=== PATIENT | female | born 1995 | race Caucasian/White ===

== ENCOUNTER 2018-10-14 19:22 | Emergency (ER) | payer OTHER ==
[2018-10-14] MEDS ORDERED: ONDANSETRON 4 MG TAB.RAPDIS PO ONE (20:34)
--- NOTE | 2018-10-14 20:39 | ER Document Report ---
ED Medical Screen (RME) - General Chief Complaint: Shortness Of Breath Stated Complaint: SHORTNESS OF BREATH Time Seen by Provider: 10/14/18 20:20 Mode of Arrival: Ambulatory Information source: Patient TRAVEL OUTSIDE OF THE [place] IN LAST 30 DAYS: No - HPI Notes: 10/14/18 20:35 23-year-old female presents to the ED for complaints of epigastric abdominal pain with vomiting that occurred approximately 3 hours ago. Patient states she started taking oral prednisone yesterday for a rash on her face for concern for scarlet fever, patient had a protein shake all eating almonds when she took the prednisone. LMP x 2.5 weeks ago,not sexually active. Patient states last night she ate chicken and green beans, states she did vomit after eating that meal as well. She is supposed to be having gastric bypass sleeve done next week. Denies fevers, chills, chest pain,palpitations, shortness of breath, dyspnea, diarrhea, hematuria,blurred vision,or tingling in bilateral upper or lower extremities equally, muscle paralysis, weakness in bilateral upper or lower extremities equally or rash. ROS: Other than noted above, the 12 point review of systems was reviewed with the patient and were negative, all pertinent findings are included in the HPI. PHYSICAL EXAMINATION: Vital signs reviewed. GENERAL: Well-appearing, well-nourished and in no acute distress. HEAD: Atraumatic, normocephalic. NECK: Normal range of motion CV: Heart regular rate and rhythm LUNGS: No respiratory distress ABD: Right upper quadrant abdominal pain, epigastric pain Musculoskeletal: Normal range of motion NEUROLOGICAL: Normal speech PSYCH: Normal mood, normal affect. MDM: Patient seen and examined for rapid initial assessment. Vital signs reviewed. A comprehensive ED assessment and evaluation of the patient, analysis of test results and completion of the medical decision making process will be conducted by additional ED providers. *Note is created using voice recognition software and may contain spelling, syntax or grammatical errors. 10/14/18 20:39 - Related Data Allergies/Adverse Reactions: No Known Allergies Allergy (Unverified 11/25/15 21:49) Past Medical History Renal/ Medical History: Denies: Hx Peritoneal Dialysis GI Medical History: Reports: Hx Gastroesophageal Reflux Disease - Immunizations Hx Diphtheria, Pertussis, Tetanus Vaccination: Yes Physical Exam - Vital signs Vitals: Temp Pulse Resp BP Pulse Ox 98.6 F 130 H 20 118/78 95 10/14/18 19:41 10/14/18 19:41 10/14/18 19:41 10/14/18 19:41 10/14/18 19:41 Course - Vital Signs Vital signs: Temp Pulse Resp BP Pulse Ox 98.6 F 130 H 20 118/78 95 10/14/18 19:41 10/14/18 19:41 10/14/18 19:41 10/14/18 19:41 10/14/18 19:41
--- NOTE | 2018-10-14 21:34 | RADIOLOGY REPORT (SQ) ---
EXAM DESCRIPTION: [facility]: US ABDOMEN LIMITED CLINICAL HISTORY: 23 years Female; RUQ/epigastric pain with vomiting TECHNIQUE: Right upper quadrant ultrasound was performed. COMPARISON: None. FINDINGS: Pancreas: Visualized portions are unremarkable. Liver: 17 cm long, slightly echogenic. No ductal distention. Portal venous flow is hepatopedal, normal. Gallbladder: normal with no gallstones or sonographic evidence for acute cholecystitis. No pericholecystic fluid. No sonographic Canas's sign. Common bile duct: 4 mm. Right kidney: 12.4 cm long. No hydronephrosis. Visualized portions of aorta and IVC are unremarkable. IMPRESSION: 1. Normal right upper quadrant ultrasound.
[2018-10-14 21:35] LABS: APPEARANCE,URINE CLEAR; BILIRUBIN,URINE NEGATIVE (NEGATIVE); COLOR,URINE YELLOW; GLUCOSE, URINE NEGATIVE (NEGATIVE); KETONES,URINE 80 mg/dL (NEGATIVE); LEUKOCYTE ESTERASE,URINE NEGATIVE (NEGATIVE); NITRITE,URINE NEGATIVE (NEGATIVE); PROTEIN,URINE 30 mg/dL (NEGATIVE); URINE SPECIFIC GRAVITY 1.017; UROBILINOGEN,URINE NEGATIVE mg/dL (<2.0)
[2018-10-14 21:38] LABS: HEMATOCRIT 44.1 % (36.0-47.0); HEMOGLOBIN 14.3 g/dL (12.0-15.5); MEAN CORPUSCULAR HEMOGLOBIN 26.1 pg (27.0-33.4); MEAN CORPUSCULAR HGB CONC 32.5 g/dL (32.0-36.0); MEAN CORPUSCULAR VOLUME 81 fl (80-97); PLATELET COUNT 443 10^3/uL (150-450); RED BLOOD COUNT 5.48 10^6/uL (3.72-5.28); RED CELL DISTRIBUTION WIDTH 15.9 % (11.5-14.0); WHITE BLOOD COUNT 28.7 10^3/uL (4.0-10.5)
[2018-10-14 21:44] LABS: ALANINE AMINOTRANSFERASE 28 U/L (9-52); ALBUMIN 4.7 g/dL (3.5-5.0); ALKALINE PHOSPHATASE 86 U/L (38-126); ANION GAP 14 (5-19); ASPARTATE AMINO TRANSFERASE 27 U/L (14-36); BILIRUBIN,DIRECT 0.2 mg/dL (0.0-0.4); BILIRUBIN,TOTAL 0.3 mg/dL (0.2-1.3); BLOOD UREA NITROGEN 14 mg/dL (7-20); CALCIUM 10.3 mg/dL (8.4-10.2); CARBON DIOXIDE 23 mmol/L (22-30); CHLORIDE 105 mmol/L (98-107); GLUCOSE 114 mg/dL (75-110); POTASSIUM 4.5 mmol/L (3.6-5.0); TOTAL PROTEIN 8.1 g/dL (6.3-8.2)
[2018-10-14 22:04] LABS: ABSOLUTE LYMPHOCYTES# (MANUAL) 0.6 10^3/uL (0.5-4.7); BASOPHILS % (MANUAL) 0 % (0-2); EOSINOPHILS % (MANUAL) 0 % (0-6); LYMPHOCYTES % (MANUAL) 2 % (13-45); MONOCYTES % (MANUAL) 0 % (3-13); SEGMENTED NEUTROPHILS % (MAN) 98 % (42-78); TOTAL CELLS COUNTED 100
--- NOTE | 2018-10-14 22:05 | ER Document Report ---
ED General - General Chief Complaint: Shortness Of Breath Stated Complaint: SHORTNESS OF BREATH Time Seen by Provider: 10/14/18 20:20 Mode of Arrival: Ambulatory Notes: Patient is a pleasant 23-year-old female presents with complaint of onset of severe epigastric pain with vomiting immediately after she ate. Patient says that she has had a sore throat and has not felt well for the last several days. She saw her primary care doctor yesterday because she developed a rash. They did a rapid strep test was negative. Sore throat has since resolved. She did have a rash over her face and therefore she was told this by his contact dermatitis and she was given an IM shot of Kenalog and also placed on prednisone. Start taking prednisone today. Tonight after she ate she developed the epigastric abdominal pain and vomiting. She is scheduled to her physician in [place] tomorrow about setting up her appointment to have her gastric sleeve surgery performed. She says she is been on a high-protein low-carb diet for weight loss being that she has upcoming surgery. She denies any fevers 48 hours. She has no other complaints at this time. She says since receiving the Zofran in triage for nausea is gone her pain is gone and she now is asymptomatic and overall feels well. TRAVEL OUTSIDE OF THE [place] IN LAST 30 DAYS: No - Related Data Allergies/Adverse Reactions: No Known Allergies Allergy (Unverified 11/25/15 21:49) Past Medical History - General Information source: Patient - Social History Smoking Status: Unknown if Ever Smoked Frequency of alcohol use: None Drug Abuse: None Family History: Reviewed & Not Pertinent Patient has suicidal ideation: No Patient has homicidal ideation: No Renal/ Medical History: Denies: Hx Peritoneal Dialysis GI Medical History: Reports: Hx Gastroesophageal Reflux Disease - Immunizations Hx Diphtheria, Pertussis, Tetanus Vaccination: Yes Review of Systems - Review of Systems Notes: My Normal Review Basic REVIEW OF SYSTEMS: CONSTITUTIONAL : Denies fever, chills, or sweats. Denies recent illness. CARDIOVASCULAR: Denies chest pain. RESPIRATORY: Denies cough, cold, or chest congestion. Denies shortness of breath, difficulty breathing, or wheezing. GASTROINTESTINAL: Epigastric abdominal pain. Vomiting GENITOURINARY: Denies difficulty urinating, painful urination, burning, frequency, or blood in urine. MUSCULOSKELETAL: Denies neck or back pain or joint pain or swelling. SKIN: Denies rash or skin lesions. NEUROLOGICAL: Denies altered mental status or loss of consciousness. Denies headache. Denies weakness or paralysis or loss of use of either side. Denies problems with gait or speech. Denies sensory or motor loss. ALL OTHER SYSTEMS REVIEWED AND NEGATIVE. Physical Exam - Vital signs Vitals: Temp Pulse Resp BP Pulse Ox 98.6 F 130 H 20 118/78 95 10/14/18 19:41 10/14/18 19:41 10/14/18 19:41 10/14/18 19:41 10/14/18 19:41 - Notes Notes: General Appearance: Well nourished, alert, cooperative, no acute distress, no obvious discomfort. Vitals: reviewed, See vital signs table. Head: no swelling or tenderness to the head Eyes: PERRL, EOMI, Conjuctiva clear Mouth: No decreasd moisture Throat: No tonsillar inflammation, No airway obstruction, No lymphadenopathy Neck: Supple, no neck tenderness, No thyromegaly Lungs: No wheezing, No rales, No rhonci, No accessory muscle use, good air exchange bilaterally. Heart: Slightly tachycardic rate, Regular rythm, No murmur, no rub Abdomen: No reproducible pain palpation of the abdominal abdomen Extremities: good pulses in all extremities, no swelling or tenderness in the extremities, no edema. Skin: warm, dry, appropriate color, no rash Neuro: speech clear, oriented x 3, normal affect, responds appropriately to questions. Course - Re-evaluation Re-evalutation: 10/14/18 22:32 Patient is white count is come back at 20,000. Gallbladder ultrasound was ordered in triage and it was negative. My time evaluation the patient she is e xercising she feels much much improved. She states she has no pain at this time. She has no reproduction of pain to palpation of her abdomen. She is no longer nauseous after Zofran and says she feels well. Granted her high white count could be relation to her being on the steroids as well as her recently being ill however I am concerned that it is so high in the fact that she still tachycardic. Clinically she looks very well at this time. She again has no pain and no nausea and clinically looks very well and says that she feels good. I will give her some IV fluids. We will place her on a monitor. Her EKG does show some T wave inversions in lateral precordial leads and therefore have ordered troponin. She did not have any chest pain but she did have some epigastric abdominal pain. I we reassess her after IV fluid to make sure her heart rate is improving. 10/15/18 02:08 After IV fluid patient's heart rate is in the 60s and 70s. She looks well. She continues to deny any further pain continues to deny any vomiting. I did repeat her CBC and her white blood cell count is down to 18,000. Clinically she looks very well and she is completely asymptomatic at this time. I suspect this possibility she may have had severe gastritis or reaction to being on the steroids. This likely why her white count is so high and why she had the epigastric arm pain and vomiting after eating. Also looking her gallbladder is normal. She has no pain to palpation of her gallbladder. Abdomen is actually completely nontender at this time. Feel she safe to be discharged home. I informed her that she still needs to have a very low threshold to return to ER if she has recurrent vomiting or pain or any fevers. She is to follow-up with her doctor on Friday for reevaluation and recheck of her CBC to make sure that her white count continues to return to normal. Patient agrees with plan will be discharged home. Dictation of this chart was performed using voice recognition software; therefore, there may be some unintended grammatical errors. - Vital Signs Vital signs: Temp Pulse Resp BP Pulse Ox 98.6 F 130 H 22 H 123/53 L 97 10/14/18 19:41 10/14/18 19:41 10/15/18 01:08 10/15/18 01:08 10/15/18 01:08 - Laboratory Result Diagrams: 10/15/18 00:37 10/14/18 20:45 Laboratory results interpreted by me: 10/14/18 10/14/18 10/14/18 20:45 20:45 20:45 WBC 28.7 H RBC 5.48 H MCH 26.1 L RDW 15.9 H Seg Neutrophils % Seg Neuts % (Manual) 98 H Lymphocytes % Lymphocytes % (Manual) 2 L Monocytes % (Manual) 0 L Absolute Neutrophils Abs Neuts (Manual) 28.1 H Abs Monocytes (Manual) 0.0 L Glucose 114 H Calcium 10.3 H Urine Protein 30 H Urine Ketones 80 H Urine Ascorbic Acid 40 H 10/15/18 00:37 WBC 18.3 H RBC MCH 26.2 L RDW 15.9 H Seg Neutrophils % 87.8 H Seg Neuts % (Manual) Lymphocytes % 7.5 L Lymphocytes % (Manual) Monocytes % (Manual) Absolute Neutrophils 16.1 H Abs Neuts (Manual) Abs Monocytes (Manual) Glucose Calcium Urine Protein Urine Ketones Urine Ascorbic Acid - EKG Interpretation by Me Additional EKG results interpreted by me: 10/14/18 22:04 EKG is reviewed and interpreted by me. EKG shows sinus tachycardia with a rate of [address] segment elevation or depression. T wave inversions in lateral precordial leads. NH interval, QRS duration, QT intervals are within normal range. No old EKG available for comparison. Discharge - Discharge Clinical Impression: Vomiting Qualifiers: Vomiting type: unspecified Vomiting Intractability: unspecified Nausea presence: with nausea Qualified Code(s): R11.2 - Nausea with vomiting, unspecified Leukocytosis Qualifiers: Leukocytosis type: unspecified Qualified Code(s): D72.829 - Elevated white blood cell count, unspecified Condition: Good Disposition: HOME, SELF-CARE Additional Instructions: I suspect that there is a chance that the steroids that you have been given may have contributed to the nausea and vomiting. Sometimes steroids can cause a gastritis or irritation of the stomach which can cause pain after eating with vomiting. Please stop taking the prednisone. Please take [id number] Pepcid 20 mg every day. Please drink mostly non-caffeinated liquids over the next 24 hours and then slowly progress to a bland diet. Avoid NSAID medicaitons such as Motrin, advil, Ibuprofen, aspirin, Aleve. Tylenol is okay to take. Please return to ER immediately if you have any recurrence of pain or vomiting or any fevers. You did have a very high white blood cell count. This could be in relation to the inital pain and vomiting but likely is also very elevated due to the steroid shot that you received. I did repeat your blood counts and they have started to improve. Please follow-up with your doctor on Friday. Please have them repeat your blood counts to make sure that they are completely returning to normal. Again, please have a low threshold to return to ER if you have recurrent abdominal pain, vomiting, fevers, or feel any way. Prescriptions: Ondansetron [Zofran Odt 4 mg Tablet] 1 tab PO Q4H PRN #15 tab.rapdis PRN Reason: For Nausea/Vomiting
[2018-10-14 22:11] LABS: ANISOCYTOSIS SLIGHT
[2018-10-14 22:13] LABS: PLATELET COMMENT ADEQUATE
[2018-10-14] MEDS ORDERED: NORMAL SALINE 1000 ML 1,000 ML IV ONE (22:17)
[2018-10-15 00:44] LABS: ABSOLUTE BASOPHILS # (AUTO) 0.1 10^3/uL (0.0-0.2); ABSOLUTE LYMPHOCYTES (AUTO) 1.4 10^3/uL (0.5-4.7); ABSOLUTE MONOCYTES (AUTO) 0.8 10^3/uL (0.1-1.4); ABSOLUTE NEUT (AUTO) 16.1 10^3/uL (1.7-8.2); BASOPHILS % (AUTO) 0.4 % (0-2); EOSINOPHILS % (AUTO) 0.1 % (0-6); HEMATOCRIT 38.7 % (36.0-47.0); HEMOGLOBIN 12.7 g/dL (12.0-15.5); LYMPHOCYTES % (AUTO) 7.5 % (13-45); MEAN CORPUSCULAR HEMOGLOBIN 26.2 pg (27.0-33.4); MEAN CORPUSCULAR HGB CONC 32.8 g/dL (32.0-36.0); MEAN CORPUSCULAR VOLUME 80 fl (80-97); MONOCYTES % (AUTO) 4.2 % (3-13); PLATELET COUNT 330 10^3/uL (150-450); RED BLOOD COUNT 4.84 10^6/uL (3.72-5.28); RED CELL DISTRIBUTION WIDTH 15.9 % (11.5-14.0); SEGMENTED NEUTROPHILS % (AUTO) 87.8 % (42-78); TOTAL CELLS COUNTED % (AUTO) 100 %; WHITE BLOOD COUNT 18.3 10^3/uL (4.0-10.5)
[2018-10-15] MEDS ORDERED: FAMOTIDINE 20 MG TABLET PO ONE (01:10)
[2018-10-15 01:54] VITALS: BP 123/53
== END 2018-10-15 02:05 | disposition home or self-care (01) ==
LOC: ER 19:22
DX: R11.2 Nausea with vomiting, unspecified (principal); D72.829 Elevated white blood cell count, unspecified; R10.13 Epigastric pain; R00.0 Tachycardia, unspecified; R21 Rash and other nonspecific skin eruption
CPT/HCPCS: 99284; 96360; 36415; 83690; 85025; 81025; 80053; 81001; 84484; 76705; S0119; J7030

== ENCOUNTER 2019-09-08 14:15 | Emergency (ER) | payer OTHER ==
--- NOTE | 2019-09-08 14:39 | ER Document Report ---
ED Medical Screen (RME) - General Chief Complaint: palpaitations Stated Complaint: PALPITATIONS Time Seen by Provider: 09/08/19 14:34 Notes: This 23-year-old female presents to the emergency room today stating she had palpitations shortness of breath which is been ongoing for about 2 weeks she does have a history of bariatric surgery feels like she cannot get a full breath and has had some occasional dizziness. TRAVEL OUTSIDE OF THE [place] IN LAST 30 DAYS: No - Related Data Allergies/Adverse Reactions: No Known Allergies Allergy (Verified 09/08/19 14:32) Past Medical History - Social History Frequency of alcohol use: None Drug Abuse: None Renal/ Medical History: Denies: Hx Peritoneal Dialysis GI Medical History: Reports: Hx Gastroesophageal Reflux Disease - Immunizations Hx Diphtheria, Pertussis, Tetanus Vaccination: Yes Physical Exam - Vital signs Vitals: Temp 98.4 F 09/08/19 14:32 Course - Vital Signs Vital signs: Temp Pulse Resp BP Pulse Ox 98.4 F 09/08/19 14:32
[2019-09-08 16:05] LABS: APPEARANCE,URINE SLIGHTLY-CLOUDY; BILIRUBIN,URINE NEGATIVE (NEGATIVE); CALCIUM OXALATE CRYSTALS,URINE FEW /HPF; COLOR,URINE AMBER; GLUCOSE, URINE NEGATIVE (NEGATIVE); KETONES,URINE TRACE mg/dL (NEGATIVE); LEUKOCYTE ESTERASE,URINE NEGATIVE (NEGATIVE); NITRITE,URINE NEGATIVE (NEGATIVE); PROTEIN,URINE 30 mg/dL (NEGATIVE); URINE SPECIFIC GRAVITY 1.034; UROBILINOGEN,URINE NEGATIVE mg/dL (<2.0)
[2019-09-08 16:24] LABS: URINE AMPHETAMINES SCREEN NEGATIVE; URINE BARBITURATES SCREEN NEGATIVE; URINE BENZODIAZEPINES SCREEN NEGATIVE; URINE COCAINE SCREEN NEGATIVE; URINE MARIJUANA (THC) SCREEN NEGATIVE; URINE METHADONE SCREEN NEGATIVE; URINE PHENCYCLIDINE SCREEN NEGATIVE
[2019-09-08] MEDS ORDERED: SUCRALFATE 1 GM TABLET PO ONE (16:30)
[2019-09-08 16:50] LABS: ABSOLUTE LYMPHOCYTES (AUTO) 3.4 10^3/uL (0.5-4.7); ABSOLUTE MONOCYTES (AUTO) 0.4 10^3/uL (0.1-1.4); BASOPHILS % (AUTO) 0.2 % (0-2); EOSINOPHILS % (AUTO) 0.4 % (0-6); HEMATOCRIT 43.9 % (36.0-47.0); HEMOGLOBIN 14.9 g/dL (12.0-15.5); LYMPHOCYTES % (AUTO) 34.1 % (13-45); MEAN CORPUSCULAR HEMOGLOBIN 30.2 pg (27.0-33.4); MEAN CORPUSCULAR HGB CONC 33.9 g/dL (32.0-36.0); MEAN CORPUSCULAR VOLUME 89 fl (80-97); PLATELET COUNT 290 10^3/uL (150-450); RED BLOOD COUNT 4.93 10^6/uL (3.72-5.28); RED CELL DISTRIBUTION WIDTH 13.9 % (11.5-14.0); SEGMENTED NEUTROPHILS % (AUTO) 61.3 % (42-78); TOTAL CELLS COUNTED % (AUTO) 100 %; WHITE BLOOD COUNT 9.8 10^3/uL (4.0-10.5)
[2019-09-08 17:03] LABS: ANION GAP 10 (5-19); BLOOD UREA NITROGEN 13 mg/dL (7-20); CALCIUM 9.9 mg/dL (8.4-10.2); CARBON DIOXIDE 26 mmol/L (22-30); CHLORIDE 102 mmol/L (98-107); GLUCOSE 87 mg/dL (75-110); POTASSIUM 4.2 mmol/L (3.6-5.0)
--- NOTE | 2019-09-08 17:36 | ER Document Report ---
ED Cardiac - General Chief Complaint: palpaitations Stated Complaint: PALPITATIONS Time Seen by Provider: 09/08/19 14:34 Mode of Arrival: Ambulatory Information source: Patient TRAVEL OUTSIDE OF THE [place] IN LAST 30 DAYS: No - HPI Notes: Patient chief complaint is shortness of breath. She states she is had this for 4 to 5 days. She states that she believes it may be due to drinking too much milk of magnesia. She states that she read online that this can cause shortness of breath. She states because of her bariatric surgery she drinks milk of magn esia daily and has been doing so for over a month now. She also states that she has bad heartburn and that her Prilosec is not working. She states that she has trouble sleeping because of her shortness of breath. She denies any history of DVTs or embolisms. She is not a smoker. She takes no hormone supplements. Patient shortness of breath appears to be intermittent. Nothing appears to make it better or worse. Obvious there is no radiation of the symptoms. They appear to be moderate - Related Data Allergies/Adverse Reactions: No Known Allergies Allergy (Verified 09/08/19 14:32) Past Medical History - General Information source: Patient - Social History Smoking Status: Never Smoker Frequency of alcohol use: None Drug Abuse: None Family History: Reviewed & Not Pertinent Patient has homicidal ideation: No Renal/ Medical History: Denies: Hx Peritoneal Dialysis GI Medical History: Reports: Hx Gastroesophageal Reflux Disease - Immunizations Hx Diphtheria, Pertussis, Tetanus Vaccination: Yes Review of Systems - Review of Systems Constitutional: denies: Chills, Fever Cardiovascular: denies: Chest pain, Palpitations Respiratory: Short of breath. denies: Cough -: Yes All other systems reviewed and negative Physical Exam - Vital signs Vitals: Temp Pulse Resp BP Pulse Ox 98.4 F 97 16 115/73 98 09/08/19 14:31 09/08/19 14:31 09/08/19 14:31 09/08/19 14:31 09/08/19 14:31 Interpretation: Normal - General General appearance: Appears well, Alert - HEENT Head: Normocephalic, Atraumatic Eyes: Normal Pupils: PERRL - Respiratory Respiratory status: No respiratory distress Chest status: Nontender Breath sounds: Normal Chest palpation: Normal - Cardiovascular Rhythm: Regular Heart sounds: Normal auscultation Murmur: No - Abdominal Inspection: Normal Distension: No distension Bowel sounds: Normal Tenderness: Nontender Organomegaly: No organomegaly - Back Back: Normal, Nontender - Extremities General upper extremity: Normal inspection, Nontender, Normal color, Normal ROM, Normal temperature General lower extremity: Normal inspection, Nontender, Normal color, Normal ROM, Normal temperature, Normal weight bearing. No: Roxie's sign - Neurological Neuro grossly intact: Yes Cognition: Normal Orientation: AAOx4 [place] Coma Scale Eye Opening: Spontaneous [place] Coma Scale Verbal: Oriented [place] Coma Scale Motor: Obeys Commands Rishi Coma Scale Total: 15 Speech: Normal Motor strength normal: LUE, RUE, LLE, RLE Sensory: Normal - Psychological Associated symptoms: Normal affect, Normal mood - Skin Skin Temperature: Warm Skin Moisture: Dry Skin Color: Normal Course - Re-evaluation Re-evalutation: 09/08/19 17:35 Patient presents complaining of shortness of breath. I believe this is mainly due to anxiety and I did discuss this with the patient. I will also give the patient Carafate to help with her acid reflux. I see no evidence for pulmonary embolism as she has no risk factors and has negative Wells criteria. Patient heart rate is approximately 81 when she is relaxed but she is easily agitated and her heart rate will go up to 110. Patient has some diffuse T wave inversions however these were present on a previous EKG and I do not appreciate any new changes on this EKG. 09/08/19 17:37 - Vital Signs Vital signs: Temp Pulse Resp BP Pulse Ox 98.4 F 97 16 115/73 98 09/08/19 14:32 09/08/19 14:31 09/08/19 14:31 09/08/19 14:31 09/08/19 14:31 - Laboratory Result Diagrams: 09/08/19 15:30 09/08/19 15:30 Laboratory results interpreted by me: 09/08/19 09/08/19 15:15 15:30 Magnesium 2.5 H Urine Protein 30 H Urine Ketones TRACE H Urine Ascorbic Acid 40 H - EKG Interpretation by Ia EKG shows normal: Sinus rhythm Rate: Tachycardia - 100 Rhythm: NSR [place]/QRS: No: Right axis deviation, Left axis deviation When compared to previous EKG there are: No significant change Discharge - Discharge Clinical Impression: Anxiety, Hypermagnesemia Dyspnea Qualifiers: Dyspnea type: other forms of dyspnea Qualified Code(s): R06.09 - Other forms of dyspnea GERD (gastroesophageal reflux disease) Qualifiers: Esophagitis presence: esophagitis presence not specified Qualified Code(s): K21.9 - Gastro-esophageal reflux disease without esophagitis Condition: Stable Disposition: HOME, SELF-CARE Instructions: Dyspnea, Nonspecific ([facility]), Reflux Disease (GERD) ([facility]) Additional Instructions: Your magnesium level is high. This will come back to normal if you avoid Milk of Magnesia and increase your water intake. Prescriptions: Sucralfate [Carafate Susp 1 Gm/10 Ml Udcup] 1 gm PO Q6 #200 ml Forms: Return to Work Referrals: [facility] [Provider Group] - Follow up in 3-5 days
[2019-09-08 17:45] VITALS: BP 109/64
--- NOTE | 2019-09-09 10:02 | EKG REPORT ---
SEVERITY:- ABNORMAL ECG - SINUS TACHYCARDIA NONSPECIFIC T ABNORMALITIES, DIFFUSE LEADS : Confirmed by: Simon Souza 09-Sep-2019 10:01:16
== END 2019-09-08 17:54 | disposition home or self-care (01) ==
LOC: ER 14:15
DX: F41.9 Anxiety disorder, unspecified (principal); E83.41 Hypermagnesemia; R00.2 Palpitations; K21.9 Gastro-esophageal reflux disease without esophagitis; R06.02 Shortness of breath; R06.09 Other forms of dyspnea
CPT/HCPCS: 36415; 80048; 80307; 81001; 83735; 84484; 84702; 85025; 85379; 93005; 93010; 99285